=== PATIENT | male | born 1935 | race Caucasian/White ===

== ENCOUNTER 2021-04-30 15:13 | Emergency (ER) | payer MEDICARE ==
[~2021-04-30] VITALS: Ht 177.8 cm; Wt 72.6 kg
== END 2021-04-30 17:30 | disposition home or self-care (01) ==
LOC: ER 15:13 → EDBD 15:13 → ER 17:30
DX: I46.9 Cardiac arrest, cause unspecified (principal); J96.00 Acute respiratory failure, unspecified whether with hypoxia or hypercapnia
CPT/HCPCS: 31500; 92950; 99285-25; J0282